=== PATIENT | female | born 1960 | race Caucasian/White ===

== ENCOUNTER 2025-08-04 20:34 | Emergency (ER) | payer MEDICARE, SELFPAY ==
[2025-08-04 20:37] VITALS: BP 172/85; PULSE 76; TEMP 36.6; O2SAT 98
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
[2025-08-04] MEDS: Insulin Aspart 100 UNITS/ML UNIT 10 UNITS SC (22:13)
[2025-08-04] MEDS: MORPHine IR 15 MG TAB PO (22:14)
--- NOTE | 2025-08-04 22:59 | TELEP.MEDREC ---
Date of service: 08/04/25 Time of Service: 22:00 Telepharmacy Home Med Rec Allergies Allergies: cephalexin (From Keflex) Allergy (Severe, Verified 08/04/25 20:51) Anaphylaxis ciprofloxacin Allergy (Severe, Verified 08/04/25 20:51) rash erythromycin base Allergy (Severe, Verified 08/04/25 20:51) itchy rash adhesive tape Allergy (Intermediate, Verified 08/04/25 21:28) blisters latex Allergy (Intermediate, Verified 08/04/25 20:51) blisters and itching Penicillins Allergy (Verified 08/04/25 20:47) Anaphylaxis Interview Person Interviewed: Per nurse taking care of patient, patient unable to participate in interview. RN assisted with interview. Quality Quality of Interview/Accuracy of Medication List: Good (Fair to good) Sources Sources used to compile medication list: SureScripts Additional Notes Additional Notes: Patient was somewhat vague in what she is currently taking. Medications added to list based on consistent refill history and what patient reported to nurseLakshmi. PDMP: past 3-4 months; history extends beyond these dates hydromorphone 2 mg tab last sold (#68/8ds 07/05/25; #40/5 06/12/25; #60/5 05/13/2025; #18/3 04/30/25; #28/28 04/27/25) dextroamp-amphetamin 15 mg tab last sold (#30/30 07/08/25; #30/30 05/31/25; #30/30 04/11/2025; #03/13/2025) diazepam 5 mg tab last sold (#28/28 07/02/25; #28/28 05/15/25; #28/28 04/05/25) Recommended Changes Recommended Changes(reason for recommendation): Based on fill history, unclear if patient may be taking nortriptyline 10 mg qhs scheduled or PRN. This would need clarification. Patient did not state with with nurse during interview. Attestation: The home medication list is now updated to the best of my knowledge and is ready to be reconciled by the provider. Please contact the [facility] Medication Reconciliation Pharmacist at for any questions.
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
[2025-08-05] MEDS: MORPHine IR 15 MG TAB, 4 TABS/BTL PO (00:07)
[2025-08-05 00:17] VITALS: PULSE 86; RESP 18; O2SAT 97
== END 2025-08-05 00:21 | disposition home or self-care (01) ==
PROVIDERS: Emergency Provider Emergency Medicine; PCP Family Medicine
DX: E11.649 Type 2 diabetes mellitus with hypoglycemia without coma (principal); V49.40XA Driver injured in collision with unspecified motor vehicles in traffic accident, initial encounter
CPT/HCPCS: 99284 ×2; 36415; 36416; 82962; 96372; 70450; 72125; 72128; 72131; 73080; J1815